=== PATIENT | female | born 1970 | race African-American/Black ===

== ENCOUNTER 2017-08-10 06:25 | Emergency (ER) | payer SELFPAY ==
[~2017-08-10] VITALS: Ht 175.3 cm; Wt 79.4 kg
[2017-08-10] MEDS ORDERED: ROBAXIN-750750 MG PO (06:42)
[2017-08-10] MEDS ORDERED: IBUPROFEN600 MG ORAL (06:42)
[2017-08-10] MEDS ORDERED: Methocarbamol 750mg tab ORAL ONE (06:45)
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
[2017-08-10 07:02] VITALS: BP_SYST 174; BP_SYST 196; BP_DIAS 127; BP_DIAS 92
== END 2017-08-10 07:04 | disposition home or self-care (01) ==
LOC: EMR 06:52
DX: M62.838 Other muscle spasm (principal); M54.2 Cervicalgia; V43.62XA Car passenger injured in collision with other type car in traffic accident, initial encounter; Y92.410 Unspecified street and highway as the place of occurrence of the external cause
CPT/HCPCS: 99283